=== PATIENT | female | born 1985 | race Two or more races ===

== ENCOUNTER 2021-10-07 12:17 | Outpatient (REF) | payer OTHER, MEDICAID, SELFPAY ==
[2021-10-07 16:09] LABS: COVID-19 Test Negative (Negative)
== END 2021-10-07 12:18 | disposition home or self-care (01) ==
LOC: HO.LAB 12:17
PROVIDERS: Visit Provider Internal Medicine
DX: Z20.822 Contact with and (suspected) exposure to COVID-19 (principal)
CPT/HCPCS: 36415; 87635

== ENCOUNTER 2021-10-20 13:05 | Emergency (ER) | payer OTHER, MEDICAID, SELFPAY ==
[2021-10-20 14:25] VITALS: BP 130/77; PULSE 68; RESP 16; TEMP 36.7; O2SAT 99; BMI 22.7
--- NOTE | 2021-10-20 15:42 | ED.GENADULT ---
HPI - General Adult General Chief complaint: General Medical Stated complaint: ear pain,sore throat Time Seen by Provider: 10/20/21 15:42 Source: patient Mode of arrival: ambulatory Limitations: no limitations History of Present Illness HPI narrative: 36 y/o female presenting to the ER from home c/o sore throat that started last night. She reports increased pain with swallowing and pain radiating to her right ear. She has a mild cough and also had 2 epsidoes of diarrhea today. She is vaccinated for COVID-19 but had exposures to her in-laws last week. Her daughter also just got sent home from school today with a fever of 102. She reportedly tested negative for COVID at school today. Patient denies SOB or chest pain. No fevers. MD complaint: sore throat Onset (ago): day(s) (1) Location: mouth Radiation: non-radiation Severity: moderate Severity scale (1-10): 5 Quality: stabbing Pain Consistency: constant Relieving factors: none Exacerbating factors: eating Associated symptoms: cough and other (diarrhea) Treatments prior to arrival: none Related Data Previous Rx's Medication Instructions Recorded benzocaine 20 % mucosal spray 1 appl MUCOUS MEMBRANE TID PRN #1 10/20/21 ea Allergies Allergy/AdvReac Type Severity Reaction Status Date / Time No Known Allergies Allergy Verified 10/20/21 14:23 Review of Systems Review of Systems: Constitutional: No Fever, No Chills ENT/Mouth:+ sore throat, No Rhinorrhea, No Swallowing Difficulty, +otalgia Eyes: No Eye Pain, No Swelling, No Redness Cardiovascular: No Chest Pain, No SOB, No Orthopnea, No Edema Respiratory: + Cough, No Sputum, No Wheezing, No dyspnea Gastrointestinal: No Nausea, No Vomiting, + Diarrhea, No abdominal Pain Musculoskeletal: No joint pain, No Myalgias Skin: No Skin Lesions, No rash Neuro: No Weakness, No Dizziness, +Headache Psych: + Anxiety/Panic Heme/Lymph: No Lymphadenopathy PMFSH Past Medical History Medical History (Updated 10/20/21 @ 16:37 by NEVA Seay) Arthritis Social History Social History Advance Directives: No Advance Directives Information Provided: No Physical Exam Vital Signs: Vital Signs: Last Vital Signs Temp 98.1 F 10/20/21 14:25 Pulse 68 10/20/21 14:25 Resp 16 10/20/21 14:25 BP 130/77 10/20/21 14:25 Pulse Ox 99 10/20/21 14:25 BMI result Body Mass Index 22.7 Appearance: Alert. Oriented X3. No acute distress. Eyes: Pupils equal, round and reactive to light. ENT: Pharynx with moderate erythema, no tonsillar swelling or exudate. uvula midline, normal voice. Normal EACs and TM's bilaterally. Neck: Normal inspection. Neck supple. No LAD CVS: Normal heart rate and rhythm. Pulses normal. Respiratory: No respiratory distress. Breath sounds normal. Abdomen: Soft and nontender. +BS x4 Skin: Skin warm and dry. Normal skin color. Normal skin turgor. No rashes. Extremities: Normal inspection and ROM x4 Neuro: Oriented X 3. Grossly normal, nonfocal Course Course Course Narrative: 28-year-old female was vaccinated for COVID presents to the ER with sore throat, diarrhea and right ear pain since last night after an exposure to COVID last week. Her daughter also was home with a fever and did test negative at school today. Will check COVID and strep swabs. Motrin and lidocaine ordered for throat pain now. Reevaluation(s) Reevaluation #1: Patient negative for COVID and strep. Most likely another viral syndrome. Patient counseled on symptomatic management and recommended her getting a repeat COVID test in 48 hours if still symptomatic. Advised not about pelvic wall feeling unwell. She is requesting a numbing agent for the back of her throat for severe pain. Will give topical benzocaine prescription. Stable for discharge home supports. Medical Decision Making Lab Data Labs: Lab Results 10/20/21 10/20/21 Range/Units 15:52 15:53 COVID-19 (YANNI) Negative (Negative) COVID-19 Clin Com See Note S. pyogenes GrpA SERENITY Negative (Negative) Discharge Plan Discharge Clinical Impression: Acute viral syndrome Patient Disposition: Home, Self-Care Instructions: Viral Syndrome (ED) Additional Instructions: You were negative for COVID-19 & Strep throat. Your symptoms are most likely due to another viral infection. Treatment is supportive care - rest, increase your hydration, use warm salt water gargles and over the counter Chloraseptic spray or Cepacol lozenges for sore throat. Take Motrin and/or Tylenol around the clock for pain. Follow up wtih your doctor as needed. Consider getting re-tested for COVID-19 in the next 48 hours - we have outpatient testing here at the [facility] If you develop new or worsening symptoms call 911 or come back to the ER for further evaluation. Prescriptions: New benzocaine 20 % spray,non-aerosol 1 appl mucous membrane TID PRN (Reason: mouth irritation) Qty: 1 RF: 0
[2021-10-20] MEDS: Lidocaine HCl Viscous 2 % 15 ML SOLUTION MUCOUS MEM (16:04)
[2021-10-20] MEDS: Ibuprofen 600 MG TABLET PO (16:04)
[2021-10-20 16:09] LABS: IDNOW Serial# 9DD0AD1C; Strep A Nucleic Acid Negative (Negative)
[2021-10-20 16:16] LABS: COVID-19 Test Negative (Negative)
== END 2021-10-20 16:47 | disposition home or self-care (01) ==
PROVIDERS: Emergency Provider Emergency Medicine; PCP Internal Medicine
DX: B34.9 Viral infection, unspecified (principal); Z20.822 Contact with and (suspected) exposure to COVID-19; H92.01 Otalgia, right ear; J02.9 Acute pharyngitis, unspecified
CPT/HCPCS: 36415; 87635; 87651; 99283